=== PATIENT | male | born 1970 | race Caucasian/White ===

== ENCOUNTER 2018-04-08 16:53 | Emergency (ER) | payer SELFPAY ==
[~2018-04-08 16:53] MED LIST: BACTRIM DS1 TAB PO; CLINDAMYCIN300 MG OR; HIBICLENS4 % EX; VICODIN1 TAB PO
[2018-04-08 17:12] VITALS: BP 132/90
[2018-04-08 17:24] LABS: HEMATOCRIT 42.1 % (39.0-50.0); HEMOGLOBIN 14.7 g/dl (14.0-18.0); IMMATURE GRANULOCYTES 0.3 % (0.0-5.0); MEAN CELL VOLUME 86.3 fL CALC (80.0-100.0); MEAN CORPUSCULAR HGB 30.1 pG CALC (26.0-32.0); MEAN CORPUSCULAR HGB CONC 34.9 g/L CALC (32.0-36.0); NEUT# 7.24 thou/uL (1.82-7.42); RED BLOOD COUNT 4.88 mill/uL (4.70-6.10); RED CELL DISTRI WIDTH 12.7 % (11.5-15.5)
[2018-04-08 17:31] LABS: COCAINE POSITIVE (NEGATIVE); METHADONE NEGATIVE (NEGATIVE); TETRAHYDROCANNABIONOL NEGATIVE (NEGATIVE)
[2018-04-08 17:32] LABS: BARBITURATES NEGATIVE (NEGATIVE); OXCYCODONE NEGATIVE (NEGATIVE); TRICYLIC ANTIDEPRESSANTS NEGATIVE (NEGATIVE)
[2018-04-08 17:38] LABS: ALBUMIN 4.8 g/dL (3.2-5.0); ALKALINE PHOSPHATASE 60 u/l (38-126); ANION GAP 20 (6-22 (CALC)); BUN 14 mg/dL (9-20); BUN/CREATININE RATIO 13 (12-20 (CALC)); CARBON DIOXIDE 18 mmol/l (22-30); CHLORIDE 108 mmol/l (95-108); CREATININE 1.1 mg/dL (0.7-1.3); GFR > 60 ML/MIN (>=60 (CALC)); GFR FOR AFR.AMER. > 60 ML/MIN (>=60 (CALC)); POTASSIUM 4.3 mmol/l (3.5-5.1); SGOT/AST 34 u/l (17-59); SODIUM 142 mmol/l (137-146); TOTAL PROTEIN 7.7 g/dL (6.3-8.2)
[2018-04-08 17:39] LABS: MAGNESIUM 2.4 mg/dL (1.6-2.3)
[2018-04-08 17:40] LABS: ETHYL ALCOHOL 0 mg/dl (0-30)
== END 2018-04-08 19:35 | disposition short-term general hospital (02) | DRG 885 ==
LOC: ED 16:53
PROVIDERS: Family Medicine
DX: F20.89 Other schizophrenia (principal); R41.82 Altered mental status, unspecified; Z59.0 Homelessness